=== PATIENT | male | born 1980 | race Caucasian/White ===

== ENCOUNTER 2017-04-05 20:22 | Emergency (ER) | payer OTHER ==
[~2017-04-05] VITALS: Ht 175.3 cm; Wt 79.5 kg
[2017-04-05 21:57] VITALS: BP 147/98
--- NOTE | 2017-04-06 01:15 | REP ---
Clinical: Trauma. Fall. Technique: AP, lateral, bilateral oblique, and radial head views of the left elbow. Findings: Soft-tissue swelling with joint effusion and elevation of the anterior fat pad is appreciated along with nondisplaced fracture to the radial head. Impression: Nondisplaced radial head fracture with swelling and hemarthrosis/effusion. Signed by Isaac Donato MD 04/06/2017 01:07 A
== END 2017-04-05 22:04 | disposition home or self-care (01) ==
LOC: M ED 20:22
DX: S52.125A Nondisplaced fracture of head of left radius, initial encounter for closed fracture (principal); V19.3XXA Pedal cyclist (driver) (passenger) injured in unspecified nontraffic accident, initial encounter; Y92.099 Unspecified place in other non-institutional residence as the place of occurrence of the external cause; Y93.55 Activity, bike riding; Y99.9 Unspecified external cause status; Z88.5 Allergy status to narcotic agent

== ENCOUNTER 2017-04-14 17:02 | Emergency (ER) | payer OTHER ==
[~2017-04-14] VITALS: Ht 175.3 cm; Wt 78.0 kg
[2017-04-14] MEDS ORDERED: MOTR200T44 PO (17:10)
[2017-04-14] MEDS ORDERED: [UNRECOGNIZED DRUG - REMARK] (17:10)
[2017-04-14] MEDS ORDERED: NORCO, ANEXSIA 5/325MG TABLET (HYDROcodone/ACETAMINOPHEN) PO ONE (17:45)
[2017-04-14] MEDS ORDERED: IBUPROFEN 800 MG TAB PO ONE (17:45)
[2017-04-14 18:35] VITALS: BP 158/100
--- NOTE | 2017-04-14 19:16 | REP ---
LEFT WRIST, FOUR VIEWS: There is no evidence of an acute fracture, dislocation or intrinsic bone disease. IMPRESSION: No fracture or dislocation. Signed by Horace Centeno MD 04/14/2017 08:20 P
== END 2017-04-14 18:38 | disposition home or self-care (01) ==
LOC: M ED 17:02
DX: G56.02 Carpal tunnel syndrome, left upper limb (principal); M71.351 Other bursal cyst, right hip; Z88.8 Allergy status to other drugs, medicaments and biological substances; Z88.5 Allergy status to narcotic agent; Z79.3 Long term (current) use of hormonal contraceptives
CPT/HCPCS: 27093; 73110; 73723; 77002; 99283; A9576; Q9960

== ENCOUNTER → 2017-04-14 | Outpatient (CLI) | payer OTHER ==
[~2017-04-14] MED LIST: CONRAY-43 43% 50ML VIAL (Q9960) As Ordered ONE; MOTR200T44 PO; [UNRECOGNIZED DRUG - REMARK]
--- NOTE | 2017-04-14 10:09 | REP ---
MR ARTHROGRAM RIGHT HIP: HISTORY: Right hip pain injury during running. COMPARISON STUDIES: Comparison right hip radiographs are from April 07, 2007 and May 06, 2015. TECHNIQUE: Precontrast imaging includes coronal T1 and T2-weighted scans of both hips. Postcontrast small field of view high resolution axial, coronal and sagittal images are acquired in T1 and T2-weighted scans with fat saturation. MR ARTHROGRAPHIC FINDINGS: Pre- injection MR imaging shows normal cortical and medullary bone signal intensity in the proximal femurs bilaterally. There is no evidence to suggest avascular necrosis. No significant joint effusion is seen. The bony pelvic ring is intact. No pelvic mass or adenopathy is seen. Urinary bladder lemons are smooth. Prostate seminal vesicles are unremarkable. Post-injection imaging shows good filling and enhancement of the right hip articulation. Ligamentum teres is intact. No loose body is seen. There is a bony convexity to the head and neck junction region superiorly and laterally in the right proximal femur as visualized on the radiographs. 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 However, I do not see evidence of a tear or degeneration in the acetabular labral cartilage. No other significant finding. 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 No cartilaginous labral tear is seen. A small synovial inclusion cyst is visible in the head and neck junction region on the radiographs. Signed by Kvng Hussein MD 04/14/2017 12:24 P
--- NOTE | 2017-04-14 16:44 | REP ---
Right hip arthrogram The procedure was performed under the direction supervision of Dr. Hussein. The benefits and risks including but not limited to pain, infection, bleeding and anaphylaxis were explained to the patient and informed consent was obtained. The right femoral neck was localized using fluoroscopic guidance. Skin was prepped and draped in a sterile fashion. 1% lidocaine was used as a local anesthetic. Using fluoroscopic guidance a 22 gauge spinal needle was inserted and advanced to the femoral neck. 0.5 ml of Conray 43 was injected to verify placement. 11 ml of a solution containing 20 ml of sterile saline and 0.15 ml of ProHance was injected into the joint. The needle was removed and the patient was taken to MRI for postprocedural imaging. The the patient tolerated the procedure well and there were no immediate complications. 1 second of fluoro time was utilized for this procedure. Reviewed by BRIGHT Orta 04/14/2017 03:41 PSigned by Kvng Hussein MD 04/14/2017 04:35 P
== END ==
LOC: M RADPRO 07:03
PROVIDERS: ATTEND Physician Assistant Medical
DX: M71.351 Other bursal cyst, right hip (principal); Z88.8 Allergy status to other drugs, medicaments and biological substances; Z88.5 Allergy status to narcotic agent
CPT/HCPCS: 27093; 73723; 77002; A9576; Q9960

== ENCOUNTER → 2018-06-29 | Outpatient (REF) | payer OTHER ==
[2018-06-29 20:28] LABS: BASO % 0.4 % (0.0-1.0); EOS # 0.1 10^3/uL (0.0-0.50); EOS % 1.4 % (0.0-3.0); HEMATOCRIT 38.8 % (42.0-52.0); HEMOGLOBIN 13.2 g/dl (13.5-17.5); IMMATURE GRANULOCYTE % 0.5 % (0-3.0); LYMPH # 3.6 10^3/uL (1.5-4.5); LYMPH % 47.3 % (24.0-44.0); MEAN CORPUSCULAR HEMOGLOBIN 30.5 pg (27.0-33.0); MEAN CORPUSCULAR VOLUME 89.6 fl (80.0-96.0); MONO # 0.5 10^3/uL (0.0-0.8); MONO % 6.8 % (0.0-5.0); NEUTROPHILS # 3.4 10^3/uL (1.8-7.7); NEUTROPHILS % 43.6 % (36.0-66.0); PLATELET COUNT, AUTOMATED 238 10^3/uL (150-450); RED BLOOD COUNT 4.33 10^6/uL (4.30-6.10); RED CELL DISTRIBUTION WIDTH 11.6 % (11.5-14.5); WHITE BLOOD COUNT 7.7 10^3/uL (4.0-10.0)
[2018-06-29 20:32] LABS: ALBUMIN/GLOBULIN RATIO 1.38 (1.00-1.93); ALKALINE PHOSPHATASE 80 U/L (45-117); ALT/SGPT 25 U/L (12-78); AMYLASE 44 U/L (25-115); ANION GAP 7 MEQ/L (8-16); AST/SGOT 13 U/L (7-37); BILIRUBIN,TOTAL 0.3 MG/DL (0.2-1.0); BLOOD UREA NITROGEN 16 MG/DL (7-18); CARBON DIOXIDE LEVEL 30 MEQ/L (21-32); CHLORIDE LEVEL 106 MEQ/L (98-107); CREATININE FOR GFR 1.02 MG/DL (0.70-1.30); GLOMERULAR FILTRATION RATE > 60.0 (>60); GLUCOSE, FASTING 89 MG/DL (70-100); LIPASE 121 U/L (73-393); SODIUM LEVEL 143 MEQ/L (136-145); TOTAL PROTEIN 6.9 GM/DL (6.4-8.2)
== END ==
LOC: M SFHCLERA 19:05
DX: R10.11 Right upper quadrant pain (principal); R53.83 Other fatigue

== ENCOUNTER 2018-12-05 11:12 | Emergency (ER) | payer OTHER ==
[~2018-12-05] VITALS: Ht 175.3 cm; Wt 74.5 kg
[~2018-12-05 11:12] MED LIST changes: -CONRAY-43 43% 50ML VIAL (Q9960) As Ordered ONE
[2018-12-05] MEDS ORDERED: LISI10TA2 PO (11:42)
[2018-12-05] MEDS ORDERED: AMBI6.25 PO (11:42)
[2018-12-05 11:47] LABS: BASO % 0.4 % (0.0-1.0); EOS # 0.1 10^3/uL (0.0-0.50); EOS % 1.2 % (0.0-3.0); HEMATOCRIT 41.7 % (42.0-52.0); HEMOGLOBIN 14.2 g/dl (13.5-17.5); LYMPH # 2.7 10^3/uL (1.5-4.5); LYMPH % 35.9 % (24.0-44.0); MEAN CORPUSCULAR HEMOGLOBIN 30.8 pg (27.0-33.0); MEAN CORPUSCULAR HGB CONC 34.1 g/dl (32.0-36.5); MEAN CORPUSCULAR VOLUME 90.5 fl (80.0-96.0); MONO # 0.5 10^3/uL (0.0-0.8); MONO % 6.2 % (0.0-5.0); NEUTROPHILS # 4.2 10^3/uL (1.8-7.7); NEUTROPHILS % 55.3 % (36.0-66.0); PLATELET COUNT, AUTOMATED 291 10^3/uL (150-450); RED BLOOD COUNT 4.61 10^6/uL (4.30-6.10); WHITE BLOOD COUNT 7.6 10^3/uL (4.0-10.0)
[2018-12-05] MEDS ORDERED: KETOROLAC 30 MG/ML VIAL (J1885) IV ONE (12:15)
[2018-12-05 12:25] LABS: BLOOD UREA NITROGEN 13 MG/DL (7-18); CALCIUM LEVEL 9.4 MG/DL (8.5-10.1); CARBON DIOXIDE LEVEL 30 MEQ/L (21-32); CHLORIDE LEVEL 102 MEQ/L (98-107); CK-MB VALUE MASS < 1.0 NG/ML (<3.6); CPK CREATINE PHOSPHOKINASE 105 U/L (39-308); CREATININE FOR GFR 1.06 MG/DL (0.70-1.30); GLOMERULAR FILTRATION RATE > 60.0 (>60); GLUCOSE, FASTING 92 MG/DL (70-100); MB/CK RELATIVE INDEX 0.95 (< OR =4); POTASSIUM SERUM 4.3 MEQ/L (3.5-5.1); SODIUM LEVEL 138 MEQ/L (136-145); TROPONIN I < 0.02 NG/ML (< 0.10)
--- NOTE | 2018-12-05 12:54 | REP ---
Chest two views HISTORY: Chest pain Comparison: None The lungs are clear. The heart is normal in size. The pulmonary vasculature is normal in appearance. The bony structure is intact. IMPRESSION: No acute disease. Electronically Signed by Zbigniew Prajapati MD 12/05/2018 12:45 P
[2018-12-05 13:25] VITALS: BP 120/77
--- NOTE | 2018-12-05 21:01 | ECGEPIP ---
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
== END 2018-12-05 13:33 | disposition home or self-care (01) ==
LOC: M ED 11:12
DX: R07.89 Other chest pain (principal); I10 Essential (primary) hypertension; F41.9 Anxiety disorder, unspecified; Z88.5 Allergy status to narcotic agent; Z79.899 Other long term (current) drug therapy
CPT/HCPCS: 71046; 80048; 82550; 82553; 84484; 85025; 85379; 93005; 93041; 94760; 96374; 99285; J1885

== ENCOUNTER 2019-02-05 19:47 | Emergency (ER) | payer OTHER ==
[~2019-02-05] VITALS: Ht 175.3 cm; Wt 72.7 kg
[~2019-02-05 19:47] MED LIST changes: +AMBI6.25 PO; +LISI10TA2 PO
--- NOTE | 2019-02-05 20:31 | REPVR ---
EXAM: US Scrotum EXAM DATE/TIME: 02/05/2019 8:13 PM CLINICAL HISTORY: 38 years old, male; Scrotum pain; Additional info: Testicular pain TECHNIQUE: Imaging protocol: Real-time ultrasound of the scrotum and contents with color Doppler and image documentation. COMPARISON: No relevant prior studies available. FINDINGS: Right testicle measures 4.4 x 2.1 x 3.3 cm in size. Right testicle appears homogeneous with no focal mass. Normal Doppler flow is present within the right testicle. Left testicle measures 3.9 x 2.1 x 3.1 cm in size. Left testicle appears homogeneous with no focal mass. Normal Doppler flow is present within the left testicle. Left epididymal tail is enlarged and heterogeneous compared to the right with slightly increased Doppler flow. Bilateral small epididymal cysts, 4 mm right and 5 mm left Moderate scrotal fluid. No bowel-containing hernia sac within the scrotum. IMPRESSION: Possible epididymitis involving epididymal tail no evidence of orchitis torsion or scrotal abscess. Incidental bilateral epididymal cysts Electronically signed by: Joss Felix On 02/05/2019 20:31:06 PM
[2019-02-05] MEDS ORDERED: BACT800T5 PO (21:10)
[2019-02-05] MEDS ORDERED: BACTRIM 160MG/800MG DS TAB PO ONE (21:15)
[2019-02-05 21:43] VITALS: BP 120/80
== END 2019-02-05 21:44 | disposition home or self-care (01) ==
LOC: M ED 19:47
DX: N45.1 Epididymitis (principal); Z79.899 Other long term (current) drug therapy; Z88.5 Allergy status to narcotic agent